=== PATIENT | female | born 2000 | race Caucasian/White ===

== ENCOUNTER 2019-03-13 21:52 | Emergency (ER) | payer MEDICAID ==
[~2019-03-13] VITALS: Ht 160 cm; Wt 56.2 kg
[2019-03-13 21:53] VITALS: BP 131/78
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
[2019-03-13] MEDS ORDERED: LIDOCAINE 1% 500 MG/50 ML VIAL INJ SCH (22:40)
[2019-03-13] MEDS ORDERED: LIDOCAINE MPF 1% 5mL VIAL ONE (22:52)
[2019-03-13] MEDS ORDERED: BACITRACIN OINT 500 UNITS/GM PKT TP ONE (23:14)
--- NOTE | 2019-03-13 23:29 | NUR ---
Patient discharged with v/s stable. Written and verbal after care instructions given and explained. Patient verbalized understanding. Ambulatory with steady gait. All questions addressed prior to discharge. Advised to follow up with PMD.
== END 2019-03-13 23:29 | disposition home or self-care (01) ==
LOC: MED 21:52
DX: S61.217A Laceration without foreign body of left little finger without damage to nail, initial encounter (principal); W26.8XXA Contact with other sharp object(s), not elsewhere classified, initial encounter; Y93.G1 Activity, food preparation and clean up; Y92.89 Other specified places as the place of occurrence of the external cause; Y99.8 Other external cause status
CPT/HCPCS: 12001; 90471; 90715; 99283; J2001